=== PATIENT | female | born 1980 | race Caucasian/White ===

== ENCOUNTER 2019-11-29 23:12 | Emergency (ER) | payer MEDICAID ==
[~2019-11-29] VITALS: Ht 160 cm; Wt 64.0 kg
[2019-11-29 23:15] VITALS: BP 178/58
[2019-11-29] MEDS ORDERED: HYDROCODONE/ACETAMINOPHEN 5/325MG TABLET PO STA (23:30)
[2019-11-29] MEDS ORDERED: ONDANSETRON HCL 4MG/2ML INJ IV STA (23:30)
[2019-11-29] MEDS ORDERED: SODIUM CHLORIDE 0.9% 1,000 ML IV ONE (23:30)
[2019-11-30 00:23] LABS: HCG SCREEN NEGATIVE
[2019-11-30] MEDS ORDERED: KETOROLAC 15MG/ML VIAL IV ONE ×2 (01:00→02:30)
[2019-11-30] MEDS ORDERED: DIPHENHYDRAMINE 50MG/ML VIAL IV ONE ×2 (01:00→05:30)
[2019-11-30] MEDS ORDERED: METOCLOPRAMIDE HCL 10MG/2ML VIAL IV ONE (01:00)
[2019-11-30] MEDS ORDERED: DEXAMETHASONE 10 MG/ML VIAL IV ONE (02:30)
[2019-11-30] MEDS ORDERED: BUTALBITAL/ACETAMINOPHEN/CAFFEINE 50/325/40MG TABLET PO ONE (02:30)
[2019-11-30] MEDS ORDERED: SODIUM CHLORIDE 0.9% 1,000 ML IV ONE (03:15)
[2019-11-30 03:55] LABS: BASOPHILS % 0.5 % (0.0-2.0); EOSINOPHILS % 0.2 % (0.0-5.0); HEMATOCRIT. 42.8 % (36.0-48.0); HEMOGLOBIN. 14.3 g/dL (12.0-16.0); LYMPHOCYTES % 13.9 % (20.0-50.0); MEAN CORPUSCULAR HEMOGLOBIN 30.6 pg (28.0-32.0); MEAN CORPUSCULAR VOLUME 91.5 fL (81.0-99.0); MEAN PLATELET VOLUME 9.7 fl (7.4-10.4); MONOCYTES % 4.5 % (2.0-8.0); NEUTROPHILS % 80.9 % (40.0-76.0); PLATELET 298 x1000/uL (130-400); RED BLOOD CELL COUNT 4.68 mill/uL (4.2-5.4); RED CELL DISTRIBUTION WIDTH 13.1 % (11.6-14.6)
[2019-11-30] MEDS ORDERED: IOHEXOL-350 100 ML BOTTLE ONE (05:09)
[2019-11-30] MEDS ORDERED: SUMATRIPTAN SUCCINATE 6MG/0.5ML VIAL SUBCUT ONE (05:30)
[2019-11-30] MEDS ORDERED: MORPHINE SULFATE 4 MG/ML CPJ (NOT FOR IM USE) IV ONE (05:30)
[2019-11-30] MEDS ORDERED: ONDANSETRON HCL 4MG/2ML INJ IV ONE (05:30)
[2019-11-30] MEDS ORDERED: PROCHLORPERAZINE 10MG/2ML VIAL IV ONE (05:30)
[2019-11-30 05:37] LABS: CHLORIDE 108 mEq/L (98-107)
== END 2019-11-30 06:47 | disposition home or self-care (01) ==
LOC: ER 23:12
DX: R51 Headache (principal); I10 Essential (primary) hypertension
CPT/HCPCS: 36415; 70450; 70496; 70498; 80048; 84703; 85025; 96361; 96372; 96374; 96375; 96376; 99291; J0780; J1100; J1200; J1885; J2270; J2405; J2765; J3030; J7030; Q9967; 99285

== ENCOUNTER 2020-01-14 01:15 | Inpatient (IN) | payer MEDICAID ==
[~2020-01-14] VITALS: Ht 162.6 cm; Wt 62.6 kg
[2020-01-14 02:29] LABS: CHLORIDE 108 mEq/L (98-107); EOSINOPHILS % 1.7 % (0.0-5.0); HEMATOCRIT. 39.5 % (36.0-48.0); HEMOGLOBIN. 13.6 g/dL (12.0-16.0); LYMPHOCYTES % 19.1 % (20.0-50.0); MEAN CORPUSCULAR HEMOGLOBIN 31.3 pg (28.0-32.0); MEAN PLATELET VOLUME 8.8 fl (7.4-10.4); MONOCYTES % 9.6 % (2.0-8.0); NEUTROPHILS % 68.6 % (40.0-76.0); PLATELET 317 x1000/uL (130-400); RED BLOOD CELL COUNT 4.35 mill/uL (4.2-5.4); RED CELL DISTRIBUTION WIDTH 13.8 % (11.6-14.6)
[2020-01-14 02:32] LABS: INR 0.9
[2020-01-14 02:33] LABS: ETHANOL BLOOD < 10 mg/dL
[2020-01-14 02:36] LABS: LDL CHOLESTEROL 146 mg/dL (5-100)
[2020-01-14 02:37] LABS: CREATINE KINASE 121 IU/L (26-192)
[2020-01-14] MEDS ORDERED: SODIUM CHLORIDE 0.9% 1,000 ML IV ONE (02:45)
[2020-01-14] MEDS ORDERED: POTASSIUM CHLORIDE INJ 40 MEQ in DEXT 5% WATER 250 ML IV SCH (03:00)
[2020-01-14] MEDS ORDERED: IOHEXOL-350 100 ML BOTTLE ONE (03:02)
[2020-01-14] MEDS ORDERED: ASPIRIN 325MG EC TABLET PO ONE (03:30)
[2020-01-14] MEDS ORDERED: ASPIRIN 300MG SUPP PR ONE (05:00)
[2020-01-14] MEDS ORDERED: CLONIDINE 0.1MG TABLET PO PRN ×2 (07:30→09:30)
[2020-01-14] MEDS ORDERED: KETOROLAC 15MG/ML VIAL IV PRN (07:30)
[2020-01-14] MEDS ORDERED: MAGNESIUM/ALUMINUM HYDROXIDE/SIMETHICONE 30ML UDC PO PRN ×2 (07:30→09:30)
[2020-01-14] MEDS ORDERED: ACETAMINOPHEN 325MG TABLET PO PRN ×3 (07:30→09:30)
[2020-01-14] MEDS ORDERED: NITROGLYCERIN 0.4MG TABLET SL SL PRN ×2 (07:30→09:30)
[2020-01-14] MEDS ORDERED: ONDANSETRON HCL 4MG/2ML INJ IV PRN ×2 (07:30→09:30)
[2020-01-14] MEDS ORDERED: DOCUSATE SODIUM 100MG CAPSULE PO PRN ×2 (07:30→09:30)
[2020-01-14] MEDS ORDERED: GUAIFENESIN 200MG/10ML SUGAR FREE UDC PO PRN ×2 (07:30→09:30)
[2020-01-14] MEDS ORDERED: IPRATROPIUM/ALBUTEROL 0.5-3(2.5)MG/3ML NEB ORI PRN (07:30)
[2020-01-14 08:02] LABS: PHOSPHORUS 1.7 mg/dL (2.5-4.9)
[2020-01-14 08:05] LABS: T4 FREE 1.32 ng/dL (0.76-1.46)
[2020-01-14 08:26] LABS: FOLIC ACID (FOLATE) SERUM >20 ng/mL ng/mL (>5.38)
[2020-01-14 08:36] LABS: VITAMIN B12 SERUM >2000 pg/mL pg/mL (211-911)
[2020-01-14] MEDS ORDERED: MVI, ADULT NO.1 10 ML, FOLIC ACID 1 MG, THIAMINE HCL 100 MG in SODIUM CHLORIDE 0.9% 1,0... IV SCH ×4 (09:00)
[2020-01-14] MEDS ORDERED: ENOXAPARIN 40MG/0.4ML SYR SUBCUT SCH (09:00)
[2020-01-14] MEDS ORDERED: KCL 20MEQ/100ML PREMIX 100 ML IV SCH (09:00)
[2020-01-14] MEDS ORDERED: ASCORBIC ACID 500 MG TABLET PO SCH (09:00)
[2020-01-14] MEDS ORDERED: FAMOTIDINE 20MG TABLET PO SCH (09:00)
[2020-01-14] MEDS ORDERED: ZINC SULFATE 220 MG ( 50 ) CAPSULE PO SCH (09:00)
[2020-01-14 09:02] VITALS: BP 131/86
[2020-01-14] MEDS: ZINC SULFATE 220 MG ( 50 ) CAPSULE PO SCH (09:40)
[2020-01-14] MEDS: FAMOTIDINE 20MG TABLET PO SCH ×2 (09:40→20:11)
[2020-01-14] MEDS: KETOROLAC 15MG/ML VIAL IV PRN ×2 (09:40→16:15)
[2020-01-14] MEDS: ASCORBIC ACID 500 MG TABLET PO SCH ×2 (09:40→20:12)
[2020-01-14] MEDS: ENOXAPARIN 40MG/0.4ML SYR SUBCUT SCH (09:41)
[2020-01-14 12:00] VITALS: BP 93/57
[2020-01-14] MEDS ORDERED: CEFTRIAXONE 1 G PREMIX 50 ML IV SCH (15:00)
[2020-01-14 16:00] VITALS: BP 110/64
[2020-01-14] MEDS: CEFTRIAXONE 1,000 MG in DEXTROSE 5% WATER 50 ML IV SCH (16:02)
[2020-01-14 16:10] LABS: CREATINE KINASE MB FRACTION < 1.0 ng/mL (0.5-3.6)
[2020-01-14 16:11] LABS: CREATINE KINASE 76 IU/L (26-192)
[2020-01-14] MEDS ORDERED: SODIUM PHOS,M-BASIC-D-BASIC 15 MM in DEXT 5% WATER 245 ML IV NR (17:00)
[2020-01-14 18:04] LABS: *BARBITURATES SCREEN URINE NEGATIVE (NEGATIVE)
[2020-01-14 18:05] LABS: *BENZODIAZEPINES SCREEN URINE NEGATIVE (NEGATIVE); METHADONE URINE SCREEN NEGATIVE (NEGATIVE); OPIATES URINE SCREEN NEGATIVE (NEGATIVE); PHENCYCLIDINE URINE SCREEN NEGATIVE (NEGATIVE)
[2020-01-14 18:12] LABS: *AMPHETAMINES SCREEN URINE PRESUMTIVE POSITIVE (NEGATIVE); *COCAINE SCREEN URINE PRESUMTIVE POSITIVE (NEGATIVE); CANNABINOID URINE SCREEN PRESUMTIVE POSITIVE (NEGATIVE)
[2020-01-14 20:00] VITALS: BP 105/55
[2020-01-14] MEDS ORDERED: ZOLPIDEM TARTRATE 5MG TABLET PO PRN ×2 (20:00)
[2020-01-14] MEDS: ACETAMINOPHEN 325MG TABLET PO PRN (20:36)
[2020-01-14 23:50] LABS: CREATINE KINASE 80 IU/L (26-192)
[2020-01-14 23:51] LABS: CREATINE KINASE MB FRACTION < 1.0 ng/mL (0.5-3.6)
[2020-01-15] VITALS: BP 109/70
[2020-01-15] MEDS: KETOROLAC 15MG/ML VIAL IV PRN ×2 (00:22→08:09)
[2020-01-15 04:00] VITALS: BP 106/60
[2020-01-15 06:09] LABS: BASOPHILS % 0.4 % (0.0-2.0); EOSINOPHILS % 3.2 % (0.0-5.0); HEMATOCRIT. 34.5 % (36.0-48.0); HEMOGLOBIN. 11.9 g/dL (12.0-16.0); LYMPHOCYTES % 21.8 % (20.0-50.0); MEAN CORPUSCULAR HEMOGLOBIN 31.8 pg (28.0-32.0); MEAN CORPUSCULAR VOLUME 92.4 fL (81.0-99.0); MEAN PLATELET VOLUME 8.7 fl (7.4-10.4); MONOCYTES % 7.9 % (2.0-8.0); NEUTROPHILS % 66.7 % (40.0-76.0); PLATELET 235 x1000/uL (130-400); RED BLOOD CELL COUNT 3.74 mill/uL (4.2-5.4); RED CELL DISTRIBUTION WIDTH 13.7 % (11.6-14.6)
[2020-01-15 06:37] LABS: CHLORIDE 114 mEq/L (98-107)
[2020-01-15 07:11] LABS: PHOSPHORUS 3.4 mg/dL (2.5-4.9)
[2020-01-15 07:56] VITALS: BP 101/59
[2020-01-15] MEDS: FAMOTIDINE 20MG TABLET PO SCH ×2 (08:08→21:04)
[2020-01-15] MEDS: ASPIRIN 81MG EC TABLET PO SCH (08:08)
[2020-01-15] MEDS: ZINC SULFATE 220 MG ( 50 ) CAPSULE PO SCH (08:08)
[2020-01-15] MEDS: ASCORBIC ACID 500 MG TABLET PO SCH ×2 (08:08→21:04)
[2020-01-15] MEDS: ENOXAPARIN 40MG/0.4ML SYR SUBCUT SCH (08:09)
[2020-01-15] MEDS ORDERED: ASPIRIN 81MG EC TABLET PO SCH (09:00)
[2020-01-15] MEDS ORDERED: LIDOCAINE HCL/PF 1% 2ML VIAL ONE (10:03)
[2020-01-15 10:30] LABS: BG BASE EXCESS -6.7 mmol/L (-2.0-2.0); BG CARBOXYHEMOGLOBIN 0.3 % (0.5-1.5); BG DEOXYHEMOGLOBIN 2.5 % (0.0-5.0); BG HCO3 ACT 16.9 mmol/L (22.0-26.0); BG METHEMOGLOBIN 0.2 % (0.0-1.5); BG OXYGEN SATURATION 97.5 % (92.0-98.5); BG PCO2 28.3 mmHg (35.0-45.0); BG PH 7.394 (7.350-7.450); BG PO2 102.2 mmHg (75.0-100.0); BG SAMPLE SITE RIGHT RADIAL; BG VENT MODE ROOM AIR
[2020-01-15 11:44] LABS: PROTHROMBIN TIME 10.3 sec (9.6-11.0)
[2020-01-15 12:00] VITALS: BP 112/72
[2020-01-15] MEDS: BLOOD SUGAR DIAGNOSTIC STRIP TEST SCH ×3 (12:20→21:03)
[2020-01-15] MEDS ORDERED: BUTALBITAL/ACETAMINOPHEN/CAFFEINE 50/325/40MG TABLET PO PRN (13:00)
[2020-01-15 16:00] VITALS: BP 102/52
[2020-01-15] MEDS: CEFTRIAXONE 1,000 MG in DEXTROSE 5% WATER 50 ML IV SCH (16:35)
[2020-01-15 20:00] VITALS: BP 115/64
[2020-01-15] MEDS: ACETAMINOPHEN 325MG TABLET PO PRN (23:35)
[2020-01-16 00:10] VITALS: BP 106/65
[2020-01-16 04:00] VITALS: BP 104/58
[2020-01-16] MEDS: BLOOD SUGAR DIAGNOSTIC STRIP TEST SCH (06:21)
[2020-01-16 08:00] VITALS: BP 109/73
[2020-01-16] MEDS: ENOXAPARIN 40MG/0.4ML SYR SUBCUT SCH (08:33)
[2020-01-16] MEDS: ASCORBIC ACID 500 MG TABLET PO SCH (08:33)
[2020-01-16] MEDS: ASPIRIN 81MG EC TABLET PO SCH (08:36)
[2020-01-16] MEDS: ZINC SULFATE 220 MG ( 50 ) CAPSULE PO SCH (08:40)
[2020-01-16] MEDS: ACETAMINOPHEN 325MG TABLET PO PRN (08:40)
[2020-01-16 09:17] VITALS: BP 109/73
[2020-01-16] MEDS ORDERED: FAMOTIDINE 10MG TABLET PO SCH (10:00)
== END 2020-01-16 09:40 | disposition home or self-care (01) | DRG 425 ==
LOC: ER 01:15 → 7WST 03:58 → EDBEDREQTM 04:12 → EDBEDREQSVC 04:12 → EDBEDREQ 04:12 → ENRESERV 07:21 → ER 07:55 → 6WST 01-15 08:35
PROVIDERS: ADMIT Internal Medicine; ATTEND Internal Medicine
DX: E87.6 Hypokalemia (principal); R47.01 Aphasia; G43.909 Migraine, unspecified, not intractable, without status migrainosus; F14.10 Cocaine abuse, uncomplicated; E83.39 Other disorders of phosphorus metabolism; F12.10 Cannabis abuse, uncomplicated; I10 Essential (primary) hypertension; J45.909 Unspecified asthma, uncomplicated; Z79.899 Other long term (current) drug therapy
CPT/HCPCS: 36415; 36600; 70496; 70498; 70551; 71045; 80053; 80061; 80305; 80320; 82375; 82550; 82553; 82607; 82746; 82805; 82962; 83036; 83540; 83550; 83605; 83721; 83735; 83880; 84100; 84439; 84443; 84484; 85025; 85384; 86850; 86900; 93005; 93970; 97162; 97166; 99291; J0696; J1650; J1885; J3411; J3480; J3490; J7030; J7060; Q9967; G0480; U0003-CS

== ENCOUNTER 2020-08-13 23:41 | Emergency (ER) | payer MEDICAID ==
[~2020-08-13] VITALS: Ht 165.1 cm; Wt 59.0 kg
[2020-08-14 00:26] LABS: BASOPHILS % 0.8 % (0.0-2.0); EOSINOPHILS % 1.5 % (0.0-5.0); HEMATOCRIT. 39.7 % (36.0-48.0); HEMOGLOBIN. 13.6 g/dL (12.0-16.0); LYMPHOCYTES % 26.7 % (20.0-50.0); MEAN CORPUSCULAR HEMOGLOBIN 31.1 pg (28.0-32.0); MEAN PLATELET VOLUME 8.7 fl (7.4-10.4); MONOCYTES % 7.5 % (2.0-8.0); NEUTROPHILS % 63.5 % (40.0-76.0); PLATELET 263 x1000/uL (130-400); RED BLOOD CELL COUNT 4.36 mill/uL (4.2-5.4); RED CELL DISTRIBUTION WIDTH 12.9 % (11.6-14.6)
[2020-08-14 00:27] LABS: CHLORIDE 111 mEq/L (98-107)
[2020-08-14 00:32] LABS: ETHANOL BLOOD 133 mg/dL
[2020-08-14 01:41] LABS: CLARITY URINE CLEAR (CLEAR); COLOR URINE YELLOW (YELLOW); KETONES URINE NEGATIVE (NEGATIVE); LEUKOCYTE ESTERASE URINE NEGATIVE (NEGATIVE); NITRITE URINE NEGATIVE (NEGATIVE); OCCULT BLOOD URINE TRACE (NEGATIVE); PH URINE 6.5 (4.5-8.0); PROTEIN URINE NEGATIVE (NEGATIVE); SPECIFIC GRAVITY URINE 1.006 (1.005-1.030); UROBILINOGEN URINE 0.2 E.U./dL (0.2-1.0)
[2020-08-14 01:51] LABS: *BARBITURATES SCREEN URINE NEGATIVE (NEGATIVE); *BENZODIAZEPINES SCREEN URINE NEGATIVE (NEGATIVE); METHADONE URINE SCREEN NEGATIVE (NEGATIVE); OPIATES URINE SCREEN NEGATIVE (NEGATIVE)
[2020-08-14 01:52] LABS: PHENCYCLIDINE URINE SCREEN NEGATIVE (NEGATIVE)
[2020-08-14 02:03] LABS: *AMPHETAMINES SCREEN URINE PRESUMTIVE POSITIVE (NEGATIVE); *COCAINE SCREEN URINE PRESUMTIVE POSITIVE (NEGATIVE); CANNABINOID URINE SCREEN PRESUMTIVE POSITIVE (NEGATIVE)
[2020-08-14 02:52] VITALS: BP 133/88
== END 2020-08-14 03:16 | disposition home or self-care (01) ==
LOC: ER 23:41
DX: G40.909 Epilepsy, unspecified, not intractable, without status epilepticus (principal); F14.10 Cocaine abuse, uncomplicated; F15.10 Other stimulant abuse, uncomplicated; F16.10 Hallucinogen abuse, uncomplicated; F12.10 Cannabis abuse, uncomplicated; F10.129 Alcohol abuse with intoxication, unspecified; Y90.6 Blood alcohol level of 120-199 mg/100 ml; I10 Essential (primary) hypertension; J45.909 Unspecified asthma, uncomplicated; Z86.73 Personal history of transient ischemic attack (TIA), and cerebral infarction without residual deficits
CPT/HCPCS: 36415; 70450; 80053; 80305; 80320; 81003; 81025; 82962; 85025; 93005; 99285; Z7610; G0480